=== PATIENT | male | born 1995 | race Two or more races ===

== ENCOUNTER 2023-08-20 19:38 | Emergency (ER) | payer MEDICAID ==
[~2023-08-20] VITALS: Ht 165.1 cm; Wt 68.0 kg
[~2023-08-20 19:38] MED LIST: SULF-261 PO
[2023-08-20 20:55] VITALS: BP 149/77; PULSE 73; RESP 18; TEMP 98.7
[2023-08-20] MEDS: IBUPROFEN 600 MG TABLET PO ONE (21:22)
[2023-08-20] MEDS: PERTUSS(ACELL),DIPH,TET/PF 0.5 ML SYRINGE [ADULT] IM. ONE (21:27)
== END 2023-08-20 23:45 | disposition home or self-care (01) ==
LOC: EMS 19:39
DX: S91.332A Puncture wound without foreign body, left foot, initial encounter (principal); W22.8XXA Striking against or struck by other objects, initial encounter; Y93.89 Activity, other specified; Y92.89 Other specified places as the place of occurrence of the external cause; Y99.8 Other external cause status
CPT/HCPCS: 90471; 90715; 99283